=== PATIENT | female | born 1960 | race Caucasian/White ===

== ENCOUNTER 2017-10-12 09:36 | Inpatient (IN) | payer MEDICARE, OTHER ==
[2017-10-12] VITALS (9 sets, daily range): BP systolic 94–114; BP diastolic 52–67
[~2017-10-12] VITALS: Ht 167.6 cm; Wt 82.0 kg
[~2017-10-12 09:36] MED LIST: ASPI-1265 PO; CA C1TAB69 PO; CALC-965 PO; CANA100T PO; COR3.125T PO; FENO145T38 PO; GLYB-97 PO; IBAN150T5 PO; LISI-222 PO; OMEG1TAB2 PO; PIOG45TA PO; SITA1TBM4 PO; [UNRECOGNIZED DRUG - CODE] PO
[2017-10-12 10:14] LABS: BASOPHILS % (AUTO) 0.3 % (0-1); EOSINOPHILS # (AUTO) 0.2 X10'3 (0-0.9); EOSINOPHILS % (AUTO) 2.1 % (0-6); HEMATOCRIT 43.3 % (35.0-45.0); HEMOGLOBIN 14.7 g/dl (12.0-16.0); LYMPHOCYTES # (AUTO) 1.7 X10'3 (1.1-4.8); LYMPHOCYTES % (AUTO) 23.1 % (21-51); MEAN CORPUSCULAR HEMOGLOBIN 30.9 PG (27.0-31.0); MEAN PLATELET VOLUME 6.9 FL (7.4-10.4); MONOCYTES # (AUTO) 0.6 X10'3 (0-0.9); MONOCYTES % (AUTO) 7.8 % (2-12); NEUTROPHILS # (AUTO) 4.9 X10'3 (1.8-7.7); NEUTROPHILS % (AUTO) 66.7 % (42-75); PLATELET COUNT 330 X10'3 (140-440); RED BLOOD COUNT 4.76 X10'6 (4.20-5.60); RED CELL DISTRIBUTION WIDTH 14.1 % (11.5-14.5); WHITE BLOOD COUNT 7.3 X10'3 (4.5-11.0)
[2017-10-12 10:32] LABS: PARTIAL THROMBOPLASTIN TIME 28 SECONDS (22-32); PROTHROMBIN TIME 10.1 SECONDS (9.0-12.0)
[2017-10-12 10:34] LABS: ALANINE AMINOTRANSFERASE 37 U/L (12-78); ALBUMIN 4.3 G/DL (3.4-5.0); ALBUMIN/GLOBULIN RATIO 1.1 (1.1-1.5); ALKALINE PHOSPHATASE 60 IU/L (46-116); ANION GAP 13 (8-16); ASPARTATE AMINO TRANSFERASE 26 U/L (10-37); BILIRUBIN,TOTAL 0.3 MG/DL (0.1-1.0); BLOOD UREA NITROGEN 18 MG/DL (7-18); BUN/CREATININE RATIO 21.4 (6.6-38.0); CALCIUM 9.5 MG/DL (8.5-10.1); CHLORIDE 107 MMOL/L (99-107); CREATININE 0.84 MG/DL (0.40-0.90); GLUCOSE 147 MG/DL (70-104); POTASSIUM 4.3 MMOL/L (3.5-5.1); SODIUM 142 MMOL/L (135-145); TOTAL CARBON DIOXIDE 22.5 MMOL/L (24-32); TOTAL PROTEIN 8.2 G/DL (6.4-8.2); eGFR 70 ML/MIN
[2017-10-12] MEDS ORDERED: GABA600T2 PO (11:00)
[2017-10-12] MEDS ORDERED: TOPI50TA24 PO (11:00)
[2017-10-12] MEDS ORDERED: EMPA10TA PO (11:00)
[2017-10-12] MEDS ORDERED: LEVO75TA PO (11:00)
[2017-10-12] MEDS ORDERED: magnesium hydroxide 30ml (MOM) UD suspension PO PRN (11:05)
[2017-10-12] MEDS ORDERED: aspirin 81mg tab.chew PO ONE (11:05)
[2017-10-12] MEDS ORDERED: aspirin 325mg tablet PO ONE (11:05)
[2017-10-12] MEDS: K and/or MAG REPLACEMENT MC SCH (11:05)
[2017-10-12] MEDS ORDERED: magnesium 2GM in 50ml NS 50 ML IV PRN (11:05)
[2017-10-12] MEDS ORDERED: magnesium 4gm in 100ml NS 100 ML IV PRN (11:05)
[2017-10-12] MEDS ORDERED: acetaminophen 325mg tablet PO PRN ×2 (11:05)
[2017-10-12] MEDS ORDERED: ondansetron/PF 4mg/2ml inj IV PRN (11:05)
[2017-10-12] MEDS ORDERED: magnesium Cl slow-release 64mg tablet PO PRN (11:05)
[2017-10-12] MEDS ORDERED: potassium Cl 20 mEq SR tablet PO PRN ×2 (11:05)
[2017-10-12] MEDS ORDERED: potassium Cl 40MEQ/NS 500ml 500 ML IV PRN ×2 (11:05)
[2017-10-12] MEDS ORDERED: diphenhydrAMINE 25mg capsule PO PRN (11:05)
[2017-10-12] MEDS ORDERED: morphine 4 MG/ML inj SYRINge IV PRN ×2 (11:05)
[2017-10-12] MEDS ORDERED: mag hydrox/Alum hydrox/simeth 30ml oral suspension PO PRN (11:05)
[2017-10-12] MEDS ORDERED: HYDROcodone/acetaminophen 10/325mg tab PO PRN (11:05)
[2017-10-12] MEDS ORDERED: IBANDRONATE SODIUM 150 MG PO SCH (11:10)
[2017-10-12] MEDS ORDERED: MONT10TA21 PO (12:36)
[2017-10-12] MEDS ORDERED: CHOL10002 PO (12:38)
[2017-10-12] MEDS: normal saline 1000ml 1,000 ML IV SCH ×2 (13:40→21:02)
[2017-10-12] MEDS ORDERED: fentaNYL/PF 50MCG/1 ML 2ML syringe ONE (16:50)
[2017-10-12] MEDS ORDERED: LIDOcaine 1%/PF (10mg/ml) 5ml vial ONE (16:50)
[2017-10-12] MEDS ORDERED: heparin 1,000unit/ml 10ml vial 10 ML ONE (16:50)
[2017-10-12] MEDS ORDERED: iohexol 350 MG/ML 50ML vial IV ONE (16:50)
[2017-10-12] MEDS ORDERED: nitroGLYCERIN-Tridil 50MG/D5W 250 ML IV ONE (16:50)
[2017-10-12] MEDS ORDERED: midazolam 2 mg/2 ml injection ONE (16:50)
[2017-10-12] MEDS ORDERED: IOHEXOL 350 MG/ML 150 ML injection IV ONE (16:50)
[2017-10-12] MEDS ORDERED: adenosine 90 MG/30ml kit =/or below 120kg Cath Lab IV ONE ×2 (17:43→18:17)
[2017-10-12] MEDS: carvedilol 6.25mg tablet PO SCH (20:53)
[2017-10-12] MEDS: metFORMIN 500mg tablet PO SCH (20:56)
[2017-10-12] MEDS: topiramate 25mg tablet PO SCH (20:57)
[2017-10-12] MEDS ORDERED: gabapentin 300mg capsule PO SCH (21:00)
[2017-10-13] MEDS: HYDROcodone/acetaminophen 5mg/325mg tablet PO PRN ×2 (01:36→08:46)
[2017-10-13 03:00] VITALS: BP 104/59
[2017-10-13 04:00] VITALS: BP 110/55
[2017-10-13 05:00] VITALS: BP 100/56
[2017-10-13 06:12] LABS: BASOPHILS % (AUTO) 0.3 % (0-1); EOSINOPHILS # (AUTO) 0.2 X10'3 (0-0.9); EOSINOPHILS % (AUTO) 2.9 % (0-6); HEMATOCRIT 36.1 % (35.0-45.0); HEMOGLOBIN 12.4 g/dl (12.0-16.0); LYMPHOCYTES # (AUTO) 2.7 X10'3 (1.1-4.8); LYMPHOCYTES % (AUTO) 35.5 % (21-51); MEAN CORPUSCULAR HEMOGLOBIN 30.7 PG (27.0-31.0); MEAN CORPUSCULAR HGB CONC 34.3 % (33.0-36.5); MEAN CORPUSCULAR VOLUME 89.6 FL (78-98); MEAN PLATELET VOLUME 6.7 FL (7.4-10.4); MONOCYTES # (AUTO) 0.8 X10'3 (0-0.9); MONOCYTES % (AUTO) 10.2 % (2-12); NEUTROPHILS # (AUTO) 3.9 X10'3 (1.8-7.7); NEUTROPHILS % (AUTO) 51.1 % (42-75); PLATELET COUNT 286 X10'3 (140-440); RED BLOOD COUNT 4.03 X10'6 (4.20-5.60); RED CELL DISTRIBUTION WIDTH 13.8 % (11.5-14.5); WHITE BLOOD COUNT 7.6 X10'3 (4.5-11.0)
[2017-10-13 06:24] LABS: ALBUMIN 3.3 G/DL (3.4-5.0); ANION GAP 10 (8-16); BLOOD UREA NITROGEN 16 MG/DL (7-18); BUN/CREATININE RATIO 22.5 (6.6-38.0); CALCIUM 8.7 MG/DL (8.5-10.1); CHLORIDE 110 MMOL/L (99-107); CREATININE 0.71 MG/DL (0.40-0.90); GLUCOSE 109 MG/DL (70-104); MAGNESIUM 1.8 MG/DL (1.5-2.4); SODIUM 142 MMOL/L (135-145); eGFR 85 ML/MIN
[2017-10-13 06:59] VITALS: BP 107/66
[2017-10-13] MEDS ORDERED: pantoprazole 40 MG vial IV ONE (07:00)
[2017-10-13] MEDS: normal saline 1000ml 1,000 ML IV SCH ×2 (07:02→09:04)
[2017-10-13] MEDS: metFORMIN 500mg tablet PO SCH (07:42)
[2017-10-13] MEDS: topiramate 25mg tablet PO SCH (07:43)
[2017-10-13] MEDS: carvedilol 6.25mg tablet PO SCH (07:44)
[2017-10-13] MEDS ORDERED: montelukast 10mg tablet PO SCH ×2 (08:00→08:35)
[2017-10-13] MEDS: K and/or MAG REPLACEMENT MC SCH (08:00)
[2017-10-13] MEDS ORDERED: lisinopril 2.5mg tablet PO SCH (08:00)
[2017-10-13] MEDS ORDERED: fenofibrate 145mg tablet PO SCH (08:00)
[2017-10-13] MEDS ORDERED: isosorbide mononitrate 30mg tab.SR.24H PO SCH (08:00)
[2017-10-13] MEDS ORDERED: Empagliflozin (Jardiance) 25 MG TAB PO SCH (08:00)
[2017-10-13] MEDS ORDERED: vitamin D (cholecalciferol) 1,000 unit tablet PO SCH (08:00)
[2017-10-13] MEDS ORDERED: levoTHYROXINE 75mcg tablet PO SCH (08:00)
[2017-10-13] MEDS ORDERED: aspirin 81mg tab.chew PO SCH (08:30)
[2017-10-13] MEDS ORDERED: pneumococcal 23-VAL P-sac vacc 25 mcg/0.5ml vial IMVAC ONE (10:00)
[2017-10-13 11:00] VITALS: BP 97/48
[2017-10-13] MEDS ORDERED: CARV-49 PO (11:38)
[2017-10-13] MEDS ORDERED: ISOS10TA8 PO (11:38)
[2017-10-13] MEDS ORDERED: CARV3.12 PO (12:20)
== END 2017-10-13 13:10 | disposition home or self-care (01) | DRG 286 ==
LOC: ER 09:37 → ED HOLD 11:02 → EDBEDREQ 16:09 → PCU 3S 19:09
PROVIDERS: ADMIT Nurse Practitioner Family; ATTEND Internal Medicine Cardiovascular Disease
PROC: 4A023N7 Measurement of Cardiac Sampling and Pressure, Left Heart, Percutaneous Approach (ICD-10-PCS; principal; 2017-10-12)
PROC: B2111ZZ Fluoroscopy of Multiple Coronary Arteries using Low Osmolar Contrast (ICD-10-PCS; 2017-10-12)
PROC: B2151ZZ Fluoroscopy of Left Heart using Low Osmolar Contrast (ICD-10-PCS; 2017-10-12)
PROC: 4A033BC Measurement of Arterial Pressure, Coronary, Percutaneous Approach (ICD-10-PCS; 2017-10-12)
DX: I25.110 Atherosclerotic heart disease of native coronary artery with unstable angina pectoris (principal); I50.31 Acute diastolic (congestive) heart failure; E11.42 Type 2 diabetes mellitus with diabetic polyneuropathy; M41.9 Scoliosis, unspecified; R07.89 Other chest pain; I11.0 Hypertensive heart disease with heart failure; M81.0 Age-related osteoporosis without current pathological fracture; F32.9 Major depressive disorder, single episode, unspecified; E78.00 Pure hypercholesterolemia, unspecified; E78.5 Hyperlipidemia, unspecified; J45.909 Unspecified asthma, uncomplicated; Z98.891 History of uterine scar from previous surgery; Z90.49 Acquired absence of other specified parts of digestive tract; Z88.8 Allergy status to other drugs, medicaments and biological substances; Z79.84 Long term (current) use of oral hypoglycemic drugs; Z79.899 Other long term (current) drug therapy
CPT/HCPCS: 36415; 71045; 80048; 80053; 83735; 84484; 85025; 85610; 85730; 87070; 90732; 93458; 93571; 99152; 99153; 99285; A4620; A6257; C1760; C1769; C9113; J0153; J1644; J2001; J2250; J3010; J3490; J7030; Q9967

== ENCOUNTER 2019-02-28 04:57 | Outpatient (CLI) | payer MEDICARE, OTHER ==
[~2019-02-28 04:57] MED LIST changes: -CA C1TAB69 PO; -CALC-965 PO; -CANA100T PO; +CARV3.12 PO; +CHOL10002 PO; -COR3.125T PO; +EMPA10TA PO; +GABA600T13 PO; -GLYB-97 PO; +ISOS10TA8 PO; +LEVO75TA PO; +MONT10TA21 PO; -OMEG1TAB2 PO; -PIOG45TA PO; +TOPI50TA24 PO; -[UNRECOGNIZED DRUG - CODE] PO
== END 2019-02-28 23:59 | disposition home or self-care (01) ==
LOC: DIABETIC 04:57
PROVIDERS: ATTEND Specialist
DX: E11.9 Type 2 diabetes mellitus without complications (principal); Z79.82 Long term (current) use of aspirin; Z79.899 Other long term (current) drug therapy
CPT/HCPCS: G0108

== ENCOUNTER 2019-06-01 01:44 | Outpatient (CLI) | payer MEDICARE, OTHER | END 2019-06-01 23:59 | disposition home or self-care (01) | LOC: DIABETIC 01:44 | PROVIDERS: ATTEND Specialist | DX: E11.9 Type 2 diabetes mellitus without complications (principal) | CPT/HCPCS: G0108 ==

== ENCOUNTER 2019-09-05 00:23 | Outpatient (CLI) | payer MEDICARE, OTHER | END 2019-09-05 23:59 | disposition home or self-care (01) | LOC: DIABETIC 00:23 | PROVIDERS: ATTEND Specialist | DX: E11.9 Type 2 diabetes mellitus without complications (principal) | CPT/HCPCS: G0108 ==

== ENCOUNTER → 2021-03-13 | Outpatient (CLI) | payer MEDICARE, OTHER ==
[2021-03-13] VITALS (21 sets, daily range): BP systolic 106–143; BP diastolic 49–106
== END | disposition home or self-care (01) ==
LOC: CARD DIAG 09:45
PROVIDERS: ATTEND Internal Medicine Cardiovascular Disease
DX: R42 Dizziness and giddiness (principal)
CPT/HCPCS: 93660

== ENCOUNTER 2021-05-15 02:46 | Emergency (ER) | payer MEDICARE, OTHER ==
[~2021-05-15] VITALS: Ht 167.6 cm; Wt 86.9 kg
[2021-05-15] MEDS ORDERED: LORazepam 2 mg/ml vial IV ONE (02:55)
[2021-05-15 03:12] LABS: BASOPHILS # (AUTO) 0.1 X10'3 (0-0.2); BASOPHILS % (AUTO) 0.6 % (0-1); EOSINOPHILS # (AUTO) 0.3 X10'3 (0-0.9); EOSINOPHILS % (AUTO) 3.2 % (0-6); HEMATOCRIT 43.4 % (35.0-45.0); HEMOGLOBIN 14.8 g/dl (12.0-16.0); LYMPHOCYTES # (AUTO) 1.4 X10'3 (1.1-4.8); LYMPHOCYTES % (AUTO) 15.3 % (21-51); MEAN CORPUSCULAR HEMOGLOBIN 31.3 PG (27.0-31.0); MEAN CORPUSCULAR HGB CONC 34.1 g/dL (33.0-36.5); MEAN CORPUSCULAR VOLUME 91.6 FL (78-98); MEAN PLATELET VOLUME 7.1 FL (7.4-10.4); MONOCYTES # (AUTO) 0.9 X10'3 (0-0.9); MONOCYTES % (AUTO) 9.6 % (2-12); NEUTROPHILS # (AUTO) 6.3 X10'3 (1.8-7.7); NEUTROPHILS % (AUTO) 71.3 % (42-75); PLATELET COUNT 288 X10'3 (140-440); RED BLOOD COUNT 4.74 X10'6 (4.20-5.60); RED CELL DISTRIBUTION WIDTH 15.3 % (11.5-14.5); WHITE BLOOD COUNT 8.9 X10'3 (4.5-11.0)
[2021-05-15 03:26] LABS: ALANINE AMINOTRANSFERASE 28 U/L (12-78); ALBUMIN 3.8 G/DL (3.4-5.0); ALBUMIN/GLOBULIN RATIO 0.9 (1.1-1.5); ALKALINE PHOSPHATASE 89 IU/L (46-116); ANION GAP 11 (8-16); ASPARTATE AMINO TRANSFERASE 20 U/L (10-37); BILIRUBIN,TOTAL 0.4 MG/DL (0.1-1.0); BLOOD UREA NITROGEN 18 MG/DL (7-18); CALCIUM 9.6 MG/DL (8.5-10.1); CHLORIDE 105 MMOL/L (99-107); CREATININE 0.75 MG/DL (0.40-0.90); GLUCOSE 150 MG/DL (70-104); POTASSIUM 4.1 MMOL/L (3.5-5.1); SODIUM 144 MMOL/L (135-145); TOTAL CARBON DIOXIDE 27.7 MMOL/L (24-32); TOTAL PROTEIN 7.9 G/DL (6.4-8.2); eGFR 78 ML/MIN
[2021-05-15 03:35] LABS: TROPONIN I < 0.04 NG/ML (0.0-0.05)
[2021-05-15] MEDS ORDERED: normal saline 1000ml 1,000 ML IV ONE (04:05)
[2021-05-15 04:49] LABS: D-DIMER 0.31 MG/L FEU (0-0.50)
[2021-05-15] MEDS ORDERED: ketorolac tromethamine 15mg/ml inj. IV ONE (04:55)
[2021-05-15 05:46] VITALS: BP 148/93
== END 2021-05-15 05:48 | disposition home or self-care (01) ==
LOC: ER 02:46
DX: R06.02 Shortness of breath (principal); R05.9 Cough, unspecified; E78.00 Pure hypercholesterolemia, unspecified; I10 Essential (primary) hypertension; J45.909 Unspecified asthma, uncomplicated; E11.9 Type 2 diabetes mellitus without complications; Z90.49 Acquired absence of other specified parts of digestive tract; Z98.890 Other specified postprocedural states; Z79.82 Long term (current) use of aspirin; Z79.899 Other long term (current) drug therapy
CPT/HCPCS: 36415; 71045; 80053; 83880; 84484; 85025; 85379; 85610; 93005; 96374; 96375; 99285; J1885; J2060; J7030

== ENCOUNTER 2022-08-16 22:01 | Emergency (ER) | payer MEDICARE, OTHER ==
[~2022-08-16] VITALS: Ht 167.6 cm; Wt 85.9 kg
[2022-08-17] MEDS ORDERED: acetaminophen 325mg tablet PO ONE (02:20)
[2022-08-17] MEDS ORDERED: ondansetron 4mg rapidly disintigrating tab PO ONE (02:20)
[2022-08-17] MEDS ORDERED: IBUP-1984 PO (03:16)
[2022-08-17 03:41] VITALS: BP 138/79
== END 2022-08-17 03:48 | disposition home or self-care (01) ==
LOC: ER 22:02
DX: S72.001A Fracture of unspecified part of neck of right femur, initial encounter for closed fracture (principal); S09.8XXA Other specified injuries of head, initial encounter; E11.9 Type 2 diabetes mellitus without complications; J45.909 Unspecified asthma, uncomplicated; E78.00 Pure hypercholesterolemia, unspecified; I10 Essential (primary) hypertension; Z90.49 Acquired absence of other specified parts of digestive tract; Z79.899 Other long term (current) drug therapy; Z79.82 Long term (current) use of aspirin; Z88.8 Allergy status to other drugs, medicaments and biological substances; Z79.1 Long term (current) use of non-steroidal anti-inflammatories (NSAID); Z79.2 Long term (current) use of antibiotics; W18.39XA Other fall on same level, initial encounter; Y93.89 Activity, other specified; Y92.89 Other specified places as the place of occurrence of the external cause; Y99.8 Other external cause status
CPT/HCPCS: 70450; 73080; 73502; 73700; 99284

== ENCOUNTER 2023-04-19 11:35 | Emergency (ER) | payer MEDICARE, OTHER ==
[~2023-04-19] VITALS: Ht 167.6 cm; Wt 90.0 kg
[~2023-04-19 11:35] MED LIST changes: +MONT-47 PO; -MONT10TA21 PO; +TOPI-253 PO; -TOPI50TA24 PO
[2023-04-19 11:43] VITALS: BP 149/85; PULSE 130; RESP 18; TEMP 98.2; O2SAT 97
== END 2023-04-19 15:14 | disposition left against medical advice (07) ==
LOC: ER 11:36
DX: U07.1 COVID-19 (principal); R06.02 Shortness of breath; Z53.21 Procedure and treatment not carried out due to patient leaving prior to being seen by health care provider
CPT/HCPCS: 99281